=== PATIENT | male | born 1960 | race Caucasian/White ===

== ENCOUNTER 2018-11-30 19:13 | Observation (INO) | payer BC ==
--- NOTE | 2018-11-30 20:34 | PDOC.FPRHP ---
- History of Present Illness Chief Complaint: Weakness History of Present Illness: This is an 58 male with a pmh of psoriatic arthritis, HTN, HLD, DM2 Pt reports he has been dizziness for the last 2 days. Denies anything like this before. HE state he has been samanta. Today he states he was sitting on his knees and then stood up and felt dizzy. He states he has not been drinking water like he should. He denies LOC, chest pain dyspnea, SOB, or nausea/vomiting. He states that he felt light headed and at times like the room was spinning. reports taking his BP at home and it being 70/50. Pt reports bun/cr was "normal," however March of 2018 showed BUN/CR of 13/1.10 and GFR of 60 ED Course: 1L NS - Allergies/Adverse Reactions Allergies Allergy/AdvReac Type Severity Reaction Status Date / Time No Known Drug Allergies Allergy Verified 11/30/18 23:07 - Home Medications Medication Instructions Recorded Confirmed Type Amlodipine [Norvasc] 5 mg PO DAILY 11/30/18 11/30/18 History Aspirin [Aspir-Low] 81 mg PO DAILY 11/30/18 11/30/18 History Etanercept [Enbrel] 50 mg SQ Q7D 11/30/18 11/30/18 History Folic Acid 0.8 mg PO DAILY 11/30/18 11/30/18 History Lisinopril 20 mg PO HS 11/30/18 11/30/18 History Lisinopril/Hydrochlorothiazide 1 tab PO DAILY 11/30/18 11/30/18 History [Lisinopril-Hctz 20-12.5 mg Tab] Rosuvastatin [Crestor] 10 mg PO DAILY 11/30/18 11/30/18 History Testosterone Cypionate 200 mg IM Q14D 11/30/18 11/30/18 History Zolpidem Tartrate [Ambien CR] 12.5 mg PO HS PRN 11/30/18 11/30/18 History metFORMIN HCl [Metformin HCl] 1,000 mg PO BID 11/30/18 11/30/18 History - History PMHx: HTN, DM2, HLD, Presumptive CKD 3 PSHx: none FHx: non contributory Social: Denies SHUBHAM - Review of Systems General: denies: fever/chills, weight/appetite/sleep changes, night sweats, fatigue Eyes: denies: eye pain, vision changes ENT: denies: nasal congestion, rhinorrhea Respiratory: denies: cough, congestion, shortness of breath, exercise intolerance Cardiovascular: denies: chest pain, palpitation, edema Gastrointestinal: denies: nausea, vomiting, diarrhea, constipation, abdominal pain, GI bleeding Genitourinary: reports: other (darker urine in the last few days). denies: incontinence, dysuria Skin: denies: rashes, lesions Musculoskeletal: denies: pain, tenderness Neurological: denies: numbness, syncope, seizure, weakness Psychological: denies: anxiety, depression - Vital signs BP: 130/71 HR: 79 RR: 16 Tmax: 98.3 Pox: 95% on ra Wt: 100 kg - Physical Exam Constitutional: NAD, awake, alert and oriented, well developed HEENT: normocephalic and atraumatic, PERRLA, EOMI -HEENT: dry mucus membranes Neck: FROM, trachea midline, no JVD Chest: no-tender to palpation, no lesions Heart: RRR, normal S1/S2 Lungs: CTAB, no respiratory distress, no wheezing Abdomen: soft, non-tender, no hernias Musculoskeletal: normal tone, ROM grossly normal Neurological: no focal deficit, CN II-XII intact, normal sensation Skin: no rash/lesions, good turgor Heme/Lymphatic: no unusual bruising or bleeding Psychiatric: normal mood and affect, intact recent and remote memory FMR H&P: Results - Labs Result Diagrams: 12/01/18 05:14 - Radiology Interpretation CT scan - head Status: report reviewed by me (no acute intracranial findings) FMR H&P: A/P - Problem List (1) SULEMA (acute kidney injury) Current Visit: Yes Status: Acute Code(s): N17.9 - ACUTE KIDNEY FAILURE, UNSPECIFIED (2) DMII (diabetes mellitus, type 2) Current Visit: Yes Status: Acute (3) HTN (hypertension) Current Visit: Yes Status: Acute Code(s): I10 - ESSENTIAL (PRIMARY) HYPERTENSION - Plan This is a 58 yo male with a pmh of HTN, HLD, CKD SULEMA on presumptive CKD 3 -Admit to obs -S/p IVF bolus on maintenance -Holding lisinopril and metformin for now -Trend renal function with BMPs HTN -PRN labetalol and hydralazine in place -Continue other BP meds HLD -Continue home meds CKD 3 -Need more labs to confirm Code: Full Prophylaxis: SCDs Family: at bedside Diet: CC, HH Disposition: Home in1-2 days PCP: ALLI GEORGE H&P: Upper Level - Pertinent history Pt is a 58 y/o M with T2DM, HTN, HLD presenting from [place] for weakness. 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 Has been consuming fluids, but not at increased rate. States he felt dizzy, weak earlier which has now resolved. Does have a similar episode in the past. Initial pressure 99/70 but now WNL and not tachycardic. 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 Pertinent changes/additions are listed here. 1. Acute Kidney Injury- Presumed prerenal given history and hypovolemia. Will trend renal markers and hold nephrotoxic medications. Will also check CK. 2. Hypovolemia- Continue agressive IVF and PO repletion. Already improved. 3. Hypercalcemia- Likely 2/2 dehydration. Will recheck in AM 4. Incomplete RBB- Unsure is new onset. Will recommend he f/u with his PCP Dr Edwards 5. HTN- Hold medications including GAMALIEL inhibitor. Possibly restart Amlodipine in AM 6. T2DM- Holding Metformin, monitor BG 7. HLD- Resume Statin DISPO: Anticipated stay 1-2 days Addendum - Attending - Attending Attestation Date/Time: 11/30/18 0235 I personally evaluated the patient and discussed the management with Dr. Soto /Argelia. I agree with the History, Examination, Assessment and Plan documented above with any addition or exceptions noted below. Patient here with dizziness and elevated Cr after working outside in the heat all day. Originally had some hypotension that has now resolved. Reports feeling well currently. Had labs 1 month ago and told all were overall "normal". Exam is benign. Labs show no rhabdomyolysis, SULEMA on possible CKD. Received 2L IVF at OSH and will continue fluids here. Recheck labs in AM. Likely all related to low arterial pressure. Holding Metformin and ACEi.
[2018-11-30] MEDS ORDERED: Zolpidem Tartrate 5 MG TAB PO PRN (22:56)
[2018-11-30] MEDS ORDERED: Dextrose 5% in Water 1,000 ML IV PRN (22:56)
[2018-11-30] MEDS ORDERED: Ondansetron ODT 4 MG TAB PO PRN (22:56)
[2018-11-30] MEDS ORDERED: Labetalol HCl 100 MG/20 ML VIAL SLOW IVP PRN (22:56)
[2018-11-30] MEDS ORDERED: hydrALAZINE 20 MG/ML VIAL SLOW IVP PRN (22:56)
[2018-11-30] MEDS ORDERED: Dextrose 50% Abboject 50 ML SYRINGE SLOW IVP PRN (22:56)
[2018-11-30] MEDS ORDERED: HumaLOG 300 UNITS/3 ML VIAL SC PRN ×2 (22:56)
[2018-11-30] MEDS ORDERED: Acetaminophen 325 MG TAB PO PRN (22:56)
[2018-11-30] MEDS ORDERED: Acetaminophen 650 MG Suppository PR PRN (22:56)
[2018-11-30 23:02] VITALS: BMI 30.1
[2018-11-30] MEDS: Lactated Ringer's 1,000 ML IV SCH (23:20)
[2018-12-01 05:34] LABS: Hemoglobin A1c 6.6 % (4.0-6.0)
[2018-12-01] MEDS: Lactated Ringer's 1,000 ML IV SCH (05:51)
[2018-12-01 05:52] LABS: Anion Gap 13 mmol/L (10-20); BUN (Urea Nitrogen) 51 mg/dL (8.4-25.7); CK (CPK) 362 U/L (30-200); Calc. Creatinine Clearance 40 mL/min (70-130); Calcium 9.5 mg/dL (7.8-10.44); Carbon Dioxide 24 mmol/L (22-29); Chloride 104 mmol/L (98-107); Estimated GFR-MDRD 23; Glucose 117 mg/dL (70-105); Potassium 4.3 mmol/L (3.5-5.1); Sodium 137 mmol/L (136-145)
--- NOTE | 2018-12-01 07:13 | PDOC.FM ---
- Subjective Subjective: pt resting comfortably in bed, denies dizziness. good PO intake - Objective Vital Signs & Weight: Vital Signs (12 hours) Temp Pulse Resp BP Pulse Ox 12/01/18 05:14 97.9 F 72 18 116/54 L 95 11/30/18 22:52 98.3 F 69 16 135/67 97 Weight Weight 100.743 kg I&O: 11/30/18 12/01/18 12/02/18 06:59 06:59 06:59 Intake Total 1267 Output Total 775 Balance 492 Result Diagrams: 12/01/18 05:14 Phys Exam - Physical Examination Constitutional: NAD HEENT: moist MMs Neck: supple, full ROM Gastrointestinal: no distention Musculoskeletal: no edema Neurological: moves all 4 limbs Psychiatric: normal affect Skin: no rash Dx/Plan (1) SULEMA (acute kidney injury) Code(s): N17.9 - ACUTE KIDNEY FAILURE, UNSPECIFIED Status: Acute (2) DMII (diabetes mellitus, type 2) Status: Acute (3) HTN (hypertension) Code(s): I10 - ESSENTIAL (PRIMARY) HYPERTENSION Status: Acute (4) Hypercalcemia Code(s): E83.52 - HYPERCALCEMIA Status: Acute - Plan Plan: Acute Kidney Injury - Presumed prerenal given history and hypovolemia - monitor kidney fxn and hold nephrotoxic medications - CK elevated, consider FeNa and renal US to r/o other causes - much improved after rehydration Hypovolemia - Continue agressive IVF and PO repletion Hypercalcemia, resolved - Likely 2/2 dehydration Incomplete RBB - Unsure is new onset - recommend he f/u with his PCP Dr Edwards HTN - Hold medications including GAMALIEL inhibitor T2DM - Holding Metformin, monitor BG HLD - Resume Statin PCP: OOT Code: full Dispo: DC later today, resume BP and DM meds on DC
[2018-12-01 08:29] VITALS: BP 112/73; TEMP 97.4
[2018-12-01] MEDS ORDERED: Amlodipine 5 MG TAB PO SCH (09:00)
[2018-12-01] MEDS ORDERED: Folic Acid 1 MG TAB PO SCH (09:00)
[2018-12-01] MEDS ORDERED: Aspirin 81 mg Enteric Coated Tablet PO SCH (09:00)
[2018-12-01] MEDS ORDERED: Non-Formulary Item 1 EACH (Etanercept [Enbrel] 50 MG) SQ SCH (09:00)
[2018-12-01] MEDS ORDERED: Rosuvastatin 10 MG TAB PO SCH (09:00)
--- NOTE | 2018-12-01 12:23 | PRG ---
DATE OF SERVICE: 12/01/2018 Mr. Urbano is a very pleasant 58-year-old man, who was admitted with probably heat exhaustion and near-syncope. He was noted upon admission to have a creatinine in excess of 4. It is now dropped to 2.8. He is tolerating p.o. fluids well. His CK levels are dropping. I believe it is safe to discharge him with a very strict instructions regarding increasing his fluid intake and staying out of the heat through the weekend. He was also advised close followup with his PCP, so that his renal functions can be rechecked. Job ID: [id number]
--- NOTE | 2018-12-02 14:54 | DIS ---
DATE OF ADMISSION: 11/30/2018 DATE OF DISCHARGE: 12/01/2018 ADMITTING ATTENDING: Art Tay MD RESIDENT: Zak Roche DO CONSULTS: None. No significant imaging or procedures to report. DISCHARGE MEDICATIONS: 1. Zolpidem 12.5 mg p.o. at bedtime. 2. Amlodipine 5 mg p.o. daily. 3. Testosterone 200 mg IM q.14 days. 4. Crestor 10 mg p.o. daily. 5. Folic acid 0.8 mg p.o. daily. 6. Enbrel 50 mg SQ q.7 days. 7. Aspirin 81 mg daily. Discontinued medications: lisinopril/hydrochlorothiazide, metformin to be resumed after following up with PCP. PRIMARY DIAGNOSIS: Acute kidney injury. SECONDARY DIAGNOSES: 1. Diabetes mellitus, type 2. 2. Hypovolemia. 3. Hypercalcemia. 4. Incomplete right bundle-branch block. 5. Hypertension. 6. Hyperlipidemia. HISTORY OF PRESENT ILLNESS/HOSPITAL COURSE: This is a 58-year-old male, who presents to the emergency department reporting dizziness for the last 2 days. Denies anything like this before. Reports he has been samanta and had some orthostatic dizziness. He has not been drinking water as much as he should and reports taking his blood pressure medication as prescribed. The patient was admitted to the hospital for SULEMA and laboratory findings since laboratory and vital signs consistent with hypovolemia and prerenal SULEMA. Responded well to fluid, kidney function improved. The patient reported symptoms had resolved. Deemed stable for discharge home and close followup. The patient instructed not to take metformin or lisinopril until following up with PCP in the next 2 to 3 days with a repeat BMP. DISCHARGE INSTRUCTIONS: 1. Location: Home. 2. Diet: Diabetic. 3. Activity: As tolerated. 4. Followup: Follow up with his PCP out of town in the next 2 to 3 days. Job ID: [id number]
== END 2018-12-01 12:10 | disposition home or self-care (01) ==
LOC: ERS 19:13 → 2SW 22:56
PROVIDERS: ADMIT Student in an Organized Health Care Education/Training Program; ATTEND Student in an Organized Health Care Education/Training Program
DX: N17.9 Acute kidney failure, unspecified (principal); E11.9 Type 2 diabetes mellitus without complications; E86.1 Hypovolemia; E83.52 Hypercalcemia; I45.19 Other right bundle-branch block; I10 Essential (primary) hypertension; E78.5 Hyperlipidemia, unspecified; L40.50 Arthropathic psoriasis, unspecified; Z79.82 Long term (current) use of aspirin; Z79.84 Long term (current) use of oral hypoglycemic drugs; Z79.899 Other long term (current) drug therapy
CPT/HCPCS: 36415; 36416; 80048; 82550; 83036; 96360; 96361; G0378

== ENCOUNTER 2021-03-06 23:09 | Inpatient (IN) | payer BC ==
[2021-03-06 23:12] VITALS: BMI 27.1
[2021-03-06] MEDS ORDERED: Acetaminophen 325 MG TAB PO PRN (23:44)
[2021-03-06] MEDS ORDERED: Ondansetron PF 4 MG/2 ML Vial IVP PRN (23:44)
[2021-03-06] MEDS ORDERED: Dextrose 5% in Water 1,000 ML IV PRN (23:45)
[2021-03-06] MEDS ORDERED: Dextrose 50% Abboject 50 ML SYRINGE SLOW IVP PRN (23:45)
[2021-03-07] MEDS ORDERED: Benzonatate 100 MG CAP PO PRN (02:12)
[2021-03-07] MEDS ORDERED: Sodium Chloride 0.9% 1,000 ML IV SCH (02:15)
[2021-03-07] MEDS: HumaLOG 300 UNITS/3 ML VIAL SC PRN ×4 (05:17→21:30)
[2021-03-07 07:04] LABS: #Lymphocytes 0.9 thou/uL (1.20-3.40); #Monocytes 0.7 thou/uL (0.11-0.59); #Neutrophils 12.7 thou/uL (1.40-6.50); %Basophils 0.2 % (0.0-1.0); %Eosinophils 0.1 % (0.0-10.0); %Lymphocytes 6.1 % (21.0-51.0); %Monocytes 4.9 % (0.0-10.0); %Neutrophils 88.7 % (42.0-75.0); Hemoglobin 16.6 g/dL (14.0-18.0); Mean Corpuscular Hemoglobin 31.1 pg (27.0-31.0); Mean Corpuscular Volume 94.1 fL (78.0-98.0); Mean Platelet Volume 7.4 fL (7.4-10.4); Platelet Count 463 thou/uL (130-400); RBC Distribution Width 11.9 % (11.5-14.5); Red Blood Cell (RBC) Count 5.34 mill/uL (4.70-6.10); White Blood Cell (WBC) Count 14.3 thou/uL (4.8-10.8)
[2021-03-07 07:20] LABS: Lactic Acid 1.4 mmol/L (0.5-2.2)
[2021-03-07 07:27] LABS: ALT (SGPT) 15 U/L (8-55); AST (SGOT) 29 U/L (5-34); Albumin 3.3 g/dL (3.4-4.8); Alkaline Phosphatase 94 U/L (40-110); Anion Gap 11 mmol/L (10-20); BUN (Urea Nitrogen) 46 mg/dL (8.4-25.7); Bilirubin, Total 0.8 mg/dL (0.2-1.2); Calc. Creatinine Clearance 75 mL/min (70-130); Calcium 9.1 mg/dL (7.8-10.44); Carbon Dioxide 27 mmol/L (23-31); Chloride 104 mmol/L (98-107); Globulin 3.2 g/dL (2.4-3.5); Glucose 238 mg/dL (80-115); Potassium 3.9 mmol/L (3.5-5.1); Protein, Total 6.5 g/dL (5.8-8.1); Sodium 138 mmol/L (136-145)
[2021-03-07] MEDS: Cholecalciferol 1,000 UNITS (25 MCG) TAB PO SCH (08:12)
[2021-03-07] MEDS: Dexamethasone 4 mg/ml Vial SLOW IVP SCH (08:12)
[2021-03-07] MEDS: Zinc Sulfate 220 MG CAP PO SCH (08:12)
[2021-03-07] MEDS: Ascorbic Acid 500 mg Chewable Tablet PO SCH (08:12)
[2021-03-07] MEDS: Famotidine 20 MG TAB PO SCH ×2 (08:12→21:29)
[2021-03-07] MEDS: Heparin 5,000 UNITS/ML VIAL SC SCH ×3 (08:13→21:30)
[2021-03-07] MEDS ORDERED: Lisinopril 20 MG TAB PO SCH (11:15)
[2021-03-07 12:44] LABS: SARS-CoV-2 PCR by NAA DETECTED (NotDetected)
[2021-03-07] MEDS: Lisinopril 20 MG TAB PO SCH (21:29)
[2021-03-07] MEDS: Amlodipine 10 MG TAB PO SCH (21:29)
[2021-03-07] MEDS: Rosuvastatin 20 MG TAB PO SCH (21:29)
[2021-03-08 05:27] LABS: #Lymphocytes 1.2 thou/uL (1.20-3.40); #Monocytes 1.1 thou/uL (0.11-0.59); #Neutrophils 10.5 thou/uL (1.40-6.50); %Basophils 0.1 % (0.0-1.0); %Lymphocytes 9.1 % (21.0-51.0); %Monocytes 8.4 % (0.0-10.0); %Neutrophils 82.4 % (42.0-75.0); Hemoglobin 15.6 g/dL (14.0-18.0); Mean Corpuscular HGB CONC 33.9 g/dL (32.0-36.0); Mean Corpuscular Hemoglobin 31.9 pg (27.0-31.0); Mean Corpuscular Volume 94.3 fL (78.0-98.0); Mean Platelet Volume 7.4 fL (7.4-10.4); Platelet Count 448 thou/uL (130-400); RBC Distribution Width 11.9 % (11.5-14.5); Red Blood Cell (RBC) Count 4.88 mill/uL (4.70-6.10); White Blood Cell (WBC) Count 12.7 thou/uL (4.8-10.8)
[2021-03-08 05:53] LABS: ALT (SGPT) 17 U/L (8-55); AST (SGOT) 27 U/L (5-34); Albumin 2.9 g/dL (3.4-4.8); Alkaline Phosphatase 78 U/L (40-110); Anion Gap 12 mmol/L (10-20); BUN (Urea Nitrogen) 45 mg/dL (8.4-25.7); Bilirubin, Total 0.8 mg/dL (0.2-1.2); Calc. Creatinine Clearance 76 mL/min (70-130); Calcium 8.6 mg/dL (7.8-10.44); Carbon Dioxide 25 mmol/L (23-31); Chloride 106 mmol/L (98-107); Globulin 2.9 g/dL (2.4-3.5); Glucose 199 mg/dL (80-115); Protein, Total 5.8 g/dL (5.8-8.1); Sodium 139 mmol/L (136-145)
[2021-03-08] MEDS: HumaLOG 300 UNITS/3 ML VIAL SC PRN ×4 (06:01→20:57)
[2021-03-08] MEDS: Lisinopril 20 MG TAB PO SCH ×2 (08:07→20:56)
[2021-03-08] MEDS: Zinc Sulfate 220 MG CAP PO SCH (08:07)
[2021-03-08] MEDS: Dexamethasone 4 mg/ml Vial SLOW IVP SCH (08:07)
[2021-03-08] MEDS: Heparin 5,000 UNITS/ML VIAL SC SCH ×3 (08:07→20:56)
[2021-03-08] MEDS: Cholecalciferol 1,000 UNITS (25 MCG) TAB PO SCH (08:07)
[2021-03-08] MEDS: Famotidine 20 MG TAB PO SCH ×2 (08:07→20:56)
[2021-03-08] MEDS: Ascorbic Acid 500 mg Chewable Tablet PO SCH (08:07)
[2021-03-08] MEDS: Amlodipine 10 MG TAB PO SCH (20:56)
[2021-03-08] MEDS: Rosuvastatin 20 MG TAB PO SCH (20:56)
[2021-03-08] MEDS ORDERED: Zolpidem Tartrate 5 MG TAB PO SCH (21:30)
[2021-03-09] MEDS: HumaLOG 300 UNITS/3 ML VIAL SC PRN ×2 (05:40→11:44)
[2021-03-09 06:50] LABS: #Lymphocytes 1.1 thou/uL (1.20-3.40); #Neutrophils 10.9 thou/uL (1.40-6.50); %Basophils 0.1 % (0.0-1.0); %Eosinophils 0.1 % (0.0-10.0); %Lymphocytes 8.3 % (21.0-51.0); %Monocytes 7.4 % (0.0-10.0); %Neutrophils 84.1 % (42.0-75.0); Hemoglobin 16.6 g/dL (14.0-18.0); Mean Corpuscular HGB CONC 33.4 g/dL (32.0-36.0); Mean Corpuscular Hemoglobin 31.3 pg (27.0-31.0); Mean Corpuscular Volume 93.7 fL (78.0-98.0); Mean Platelet Volume 7.2 fL (7.4-10.4); Platelet Count 432 thou/uL (130-400); RBC Distribution Width 11.8 % (11.5-14.5); Red Blood Cell (RBC) Count 5.29 mill/uL (4.70-6.10); White Blood Cell (WBC) Count 12.9 thou/uL (4.8-10.8)
[2021-03-09 07:12] LABS: ALT (SGPT) 21 U/L (8-55); AST (SGOT) 24 U/L (5-34); Albumin 2.8 g/dL (3.4-4.8); Alkaline Phosphatase 85 U/L (40-110); Anion Gap 13 mmol/L (10-20); BUN (Urea Nitrogen) 39 mg/dL (8.4-25.7); Bilirubin, Total 0.9 mg/dL (0.2-1.2); Calc. Creatinine Clearance 77 mL/min (70-130); Calcium 8.7 mg/dL (7.8-10.44); Carbon Dioxide 24 mmol/L (23-31); Chloride 106 mmol/L (98-107); Glucose 182 mg/dL (80-115); Potassium 4.7 mmol/L (3.5-5.1); Protein, Total 5.8 g/dL (5.8-8.1); Sodium 138 mmol/L (136-145)
[2021-03-09] MEDS: Ascorbic Acid 500 mg Chewable Tablet PO SCH (08:10)
[2021-03-09] MEDS: Heparin 5,000 UNITS/ML VIAL SC SCH ×2 (08:10→15:14)
[2021-03-09] MEDS: Zinc Sulfate 220 MG CAP PO SCH (08:11)
[2021-03-09] MEDS: Lisinopril 20 MG TAB PO SCH ×2 (08:11→17:32)
[2021-03-09] MEDS: Famotidine 20 MG TAB PO SCH ×2 (08:11→17:32)
[2021-03-09] MEDS: Dexamethasone 4 mg/ml Vial SLOW IVP SCH (08:11)
[2021-03-09] MEDS: Cholecalciferol 1,000 UNITS (25 MCG) TAB PO SCH (08:11)
[2021-03-09 08:45] VITALS: BP 127/73; TEMP 98.1
[2021-03-09] MEDS: Amlodipine 10 MG TAB PO SCH (17:31)
[2021-03-09] MEDS ORDERED: Zolpidem Tartrate 5 MG TAB PO SCH (21:00)
== END 2021-03-09 17:53 | disposition home or self-care (01) | DRG 871 ==
LOC: T4-A 23:09
PROVIDERS: ADMIT Internal Medicine; ATTEND Internal Medicine
PROC: 8E0ZXY6 Isolation (ICD-10-PCS; principal; 2021-03-06)
DX: A41.89 Other specified sepsis (principal); U07.1 COVID-19; J96.01 Acute respiratory failure with hypoxia; J12.82 Pneumonia due to coronavirus disease 2019; E87.2 Acidosis; N17.9 Acute kidney failure, unspecified; N18.30 Chronic kidney disease, stage 3 unspecified; I12.9 Hypertensive chronic kidney disease with stage 1 through stage 4 chronic kidney disease, or unspecified chronic kidney disease; E78.5 Hyperlipidemia, unspecified; E86.0 Dehydration; E11.22 Type 2 diabetes mellitus with diabetic chronic kidney disease; Z79.899 Other long term (current) drug therapy; Z79.82 Long term (current) use of aspirin; Z87.891 Personal history of nicotine dependence; Z83.6 Family history of other diseases of the respiratory system; Z98.890 Other specified postprocedural states; Z79.84 Long term (current) use of oral hypoglycemic drugs
CPT/HCPCS: 36415; 36416; 80053; 82728; 83605; 85025; 85379; 86140; J1100; J1644; J1815; J7050; U0003; U0005